=== PATIENT | male | born 1970 | race African-American/Black ===

== ENCOUNTER 2017-12-13 20:41 | Emergency (ER) | payer OTHER ==
[~2017-12-13] VITALS: Ht 188 cm; Wt 96.7 kg
[~2017-12-13 20:41] MED LIST: BENTYL20 MG PO; DURICEF1 GM PO; HYDROCODON-ACE1 EAC7 PO; MELOXICAM7.5 MG PO; VALTREX50 MG/ML PO; ZOFRAN ODT4 MG PO
[2017-12-13] MEDS ORDERED: PEN-VEE K,VEET500 MG PO (22:12)
[2017-12-13] MEDS ORDERED: MOTRIN800 MG PO (22:12)
[2017-12-13 22:22] VITALS: BP 126/94
== END 2017-12-13 22:23 | disposition home or self-care (01) ==
LOC: EME 20:41
PROC: 3E0T3BZ Introduction of Anesthetic Agent into Peripheral Nerves and Plexi, Percutaneous Approach (ICD-10-PCS; principal; 2017-12-13)
DX: K08.89 Other specified disorders of teeth and supporting structures (principal); Z72.0 Tobacco use
CPT/HCPCS: 99281; 99283

== ENCOUNTER 2018-03-06 10:44 | Emergency (ER) | payer OTHER ==
[~2018-03-06] VITALS: Ht 188 cm; Wt 97.3 kg
[~2018-03-06 10:44] MED LIST changes: +MOTRIN800 MG PO; +PEN-VEE K,VEET500 MG PO
[2018-03-06 10:55] VITALS: BP 134/96
[2018-03-06 11:08] LABS: HEMATOCRIT 44.6 % (38.0-50.0); HEMOGLOBIN 14.8 G/DL (12.5-16.6); MCH 27.5 PG (29.0-34.0); MCHC 33.2 G/DL (30.0-36.0); MCV 82.7 FL (86-99); PLATELET COUNT 278 K/uL (156-360); RBC DIS.WIDTH-CV 14.6 % (11.8-14.6); RBC DIS.WIDTH-SD 44.2 % (39-53); RED BLOOD COUNT 5.39 M/uL (4.00-5.50); WHITE BLOOD COUNT 9.4 K/uL (4.1-10.2)
[2018-03-06 11:17] LABS: ALBUMIN 4.2 g/dL (3.2-4.8); CHLORIDE 108 mEq/L (99-109); POTASSIUM 4.5 mEq/L (3.7-5.4); SODIUM 142 mEq/L (136-147)
[2018-03-06 11:20] LABS: GLUCOSE 121 mg/dL (70-99); TOTAL PROTEIN 7.8 g/dL (6.4-8.3)
[2018-03-06 11:21] LABS: TOTAL BILIRUBIN 0.5 mg/dL (0.0-1.0)
[2018-03-06 11:23] LABS: ALKALINE PHOSPHATASE 82 IU/L (3-129); GFR ESTIMATE (CALCULATED) > 59 mL/min/ (58.99-99999)
[2018-03-06 11:24] LABS: UREA NITROGEN (BUN) 12 mg/dL (9-23)
[2018-03-06 11:25] LABS: AST (GOT) 25 IU/L (2-34)
[2018-03-06 11:26] LABS: ALT (GPT) 38 IU/L (3-49)
== END 2018-03-06 12:11 | disposition left against medical advice (07) ==
LOC: EME 10:44
DX: R11.10 Vomiting, unspecified (principal); R19.7 Diarrhea, unspecified; R10.9 Unspecified abdominal pain; Z53.21 Procedure and treatment not carried out due to patient leaving prior to being seen by health care provider
CPT/HCPCS: 80053; 81003; 85027